=== PATIENT | female | born 1955 | race Caucasian/White ===

== ENCOUNTER 2016-11-19 16:42 | Emergency (ER) | payer BC ==
[2016-11-19 17:08] LABS: BASOPHIL# 0.4 X 10^3uL (0.0-0.1); BASOPHILS 2.2 % (0.0-2.0); EOSINOPHILS 0.1 % (0.0-6.0); HEMATOCRIT 51.1 % (36.0-48.0); HEMOGLOBIN 17.3 g/dL (12.0-16.0); LYMPHOCYTES 12.4 % (20.0-40.0); LYMPHOCYTES# 2.1 X 10^3uL (0.8-3.8); MEAN CELL VOLUME 87.2 fL (80.0-100.0); MEAN CORPUS. HGB CONCENTRATION 33.8 g/dL (32.0-36.0); MEAN CORPUSCULAR HEMOGLOBIN 29.5 pg (29.0-35.0); MEAN PLATELET VOLUME 10.5 fL (7.4-10.4); MONOCYTES 5.1 % (2.0-10.0); MONOCYTES# 0.9 X 10^3uL (0.2-1.0); NEUTROPHILS 80.2 % (54.0-75.0); NEUTROPHILS# 13.7 X 10^3uL (2.6-6.7); RED BLOOD COUNT 5.86 X 10^6uL (4.20-6.10); RED CELL DISTRIBUTION WIDTH 13.6 % (11.5-14.5); WHITE BLOOD COUNT 17.1 X 10^3uL (3.9-10.7)
[2016-11-19] MEDS ORDERED: ONDANSETRON HCL 4 MG/2 ML VIAL ONE ×2 (17:11→21:55)
[2016-11-19 17:19] LABS: ALBUMIN 5.1 g/dL (3.5-5.0); BILIRUBIN, DIRECT 0.3 mg/dL (0.0-0.4); BILIRUBIN, TOTAL 0.9 mg/dL (0.2-1.3); CALCIUM 11.1 mg/dL (8.4-10.2); POTASSIUM 4.7 mmol/L (3.5-5.1); TOTAL PROTEIN 9.5 g/dL (6.3-8.2)
[2016-11-19 17:55] LABS: ARTERIAL BLD GAS O2 SATURATION 94 % (95-98); ARTERIAL BLOOD GAS BASE EXCESS -22 (-2-+3); ARTERIAL BLOOD GAS HCO3 6.7 mmol/L (22-26); ARTERIAL BLOOD GAS PO2 88 mmHg (80-105)
[2016-11-19 18:10] LABS: BETA HYDROXYBUTYRATE > 2.00 mmol/L (<0.40)
[2016-11-19] MEDS ORDERED: INSULIN REGULAR HUMAN 100 UNITS/ML ML ONE (18:12)
[2016-11-19 18:13] LABS: ARTERIAL BLOOD GAS PCO2 18.6 mmHg (35-45); ARTERIAL BLOOD GAS TOTAL CO2 7 mmHg (23-27)
[2016-11-19 20:26] LABS: URINE MUCUS NONE SEEN (Up to 25%)
[2016-11-19 20:33] LABS: URINE APPEARANCE CLEAR; URINE COLOR YELLOW; URINE LEUKOCYTE ESTERASE NEGATIVE (NEGATIVE); URINE NITRITE NEGATIVE (NEGATIVE); URINE SPECIFIC GRAVITY 1.025 (0.001-1.035)
[2016-11-19 20:34] LABS: URINE BILIRUBIN 0.5 mg/100ml (1+) (NEGATIVE); URINE BLOOD NEGATIVE (NEGATIVE); URINE GLUCOSE 500mg/dL (2+) (NEGATIVE); URINE KETONE 100mg/dL (3+) (NEGATIVE); URINE PROTEIN 30mg/dL (1+) (NEG - TRACE); URINE RBC 0-5/hpf (0-5/hpf); URINE SQUAMOUS EPITHELIAL CELL 0-5/hpf (<= 15/hpf); URINE UROBILINOGEN 0.2mg/dL (Normal) (NEG-1mg/dL)
[2016-11-19 22:19] LABS: BLOOD UREA NITROGEN 21 mg/dL (7-17); CALCIUM 9.3 mg/dL (8.4-10.2); CHLORIDE 113 mmol/L (98-107); EST GLOMERULAR FILTRATION RATE > 60 mL/min; GLUCOSE 166 mg/dL (70-100); POTASSIUM 4.5 mmol/L (3.5-5.1); SODIUM 147 mmol/L (137-145)
[2016-11-19 22:25] LABS: BETA HYDROXYBUTYRATE > 2.00 mmol/L (<0.40)
[2016-11-19 22:29] LABS: ARTERIAL BLOOD GAS HCO3 7.1 mmol/L (22-26); ARTERIAL BLOOD GAS PCO2 21.9 mmHg (35-45)
[2016-11-19 22:31] LABS: TROPONIN I < 0.012 ng/mL (0.00-0.034)
[2016-11-19] MEDS ORDERED: MAG-AL PLUS XS SUSP 30 ML UDC ONE (22:39)
[2016-11-19] MEDS ORDERED: LEVOFLOXACIN/D5W 150 ML IV ONE (22:40)
[2016-11-19] MEDS ORDERED: LIDOCAINE VISCOUS 2% 15 ML UDC ONE (22:40)
--- NOTE | 2016-11-20 00:16 | ER PHYSICIAN DOCUMENTATION ---
Physician Documentation [facility] Name:Milli Reyez Age:61 yrs Sex:Female :1955 Arrival Date:11/19/2016 Time:16:42 Bed4 Private MD:No PCP, Identified ED Allanbo Dilan Disposition: 11/19/16 23:03 Transfer ordered to [facility]. Diagnosis is Diabetic Ketoacidosis (uncontrolled).. - Reason for transfer: Higher level of care. - Accepting physician is Dr. Eric Dooley. - Condition is Serious. - Problem is new. - Symptoms are unchanged. COBRA Form completed? Yes Transfer - Mode of Transportation Ambulance HPI: 11/19 17:45 This 61 yrs old Female presents to ER via Walk In with complaints of Vomiting.jm 17:45 The patient presents to the emergency department with nausea, with vomiting, without jm any complaints of abdominal pain. Onset: The symptom(s)/episode began/occurred 3 day(s) ago. Possible causes: unknown. The symptoms are aggravated by food . Associated signs and symptoms: Pertinent positives: nausea, vomiting. Severity of symptoms: in the emergency department the symptoms are unchanged. The patient has not experienced similar symptoms in the past. The patient has not recently seen a physician. Pt has not had anything to eat for the past 3 days. She continues to vomit every time she tries. She denies pain, but has some lower abd cramps that come and go. . Historical: - Allergies: Macrobid; - Home Meds: 1. Lisinopril Oral 2. Simvastatin Oral 3. Insulin: Regular Sub-Q 4. unknown oral diabetes medication 5. c pap machine at night - PMHx: Hypertension; Diabetes - IDDM; hyperlipidemia; heart murmur; SLEEP APNEA; - PSHx: None; - Tetanus: < 10 years. - Ebola Screening: : Patient negative for fever greater than or equal to 101.5 degrees Fahrenheit, and additional compatible Ebola Virus Disease symptoms. Patient denies exposure to infectious person. Patient denies travel to an Ebola-affected area in the 21 days before illness onset. No symptoms or risks identified at this time. . - Immunization history: Flu Vaccine None. - Social history: Smoking status: Patient states was never smoker of tobacco. Patient uses alcohol occasionally. ROS: 17:47 Constitutional: Negative for body aches, fever. 17:47 Constitutional: Positive for fatigue, malaise, poor PO intake. 17:47 Abdomen/GI: Positive for nausea, vomiting, abdominal cramps, Negative for diarrhea. 17:47 Skin: Negative for rash. 17:47 Neuro: Positive for weakness, Negative for dizziness, headache. 17:47 All other systems are negative. Exam: 17:48 Constitutional: The patient appears alert, awake, comfortable. 17:48 Eyes: Periorbital structures: appear normal, Conjunctiva: normal. 17:48 ENT: Mouth: is normal, Voice: is normal. 17:48 Neck: Thyroid: appears normal, Trachea: is midline with no obvious abnormalities. 17:48 Cardiovascular: Rate: tachycardic, Rhythm: regular. 17:48 Respiratory: Respirations: normal, Breath sounds: are normal. 17:48 Abdomen/GI: Bowel sounds: normal, Palpation: abdomen is soft and non-tender. 17:48 Back: pain, is absent, CVA tenderness, is absent. 17:48 Musculoskeletal/extremity: Pulses: are normal with no appreciated deficits, Sensation intact. 17:48 Skin: Appearance: Color: pink, no rash present. 17:48 Neuro: Mentation: is normal, Memory: is normal. 17:48 Psych: Behavior/mood is pleasant, cooperative, Affect is calm. Vital Signs: 17:03 BP 154 / 81; Pulse 102; Resp 20; Temp 97.9; Pulse Ox 93% on R/A; Weight 88 kg (R); mk2 Height 5 ft. 6 in. (167.64 cm); Pain 2/10; 17:14 Pulse 106 MON; Resp 20; Pulse Ox 94% ; mk2 17:19 Pulse 98 MON; Resp 24; Pulse Ox 96% ; mk2 17:21 BP 136 / 77 (auto/); mk2 17:24 Pain 0/10; mk2 17:24 Pulse 101 MON; Resp 18; Pulse Ox 96% ; mk2 18:23 BP 152 / 76 (auto/); mk2 18:24 Pulse 97 MON; Resp 16; Pulse Ox 99% ; mk2 19:24 Pulse 103 MON; Resp 23; Pulse Ox 100% ; mk2 19:24 BP 160 / 78; Pulse 106; Resp 24; Pulse Ox 100% on R/A; Pain 0/10; mk2 20:39 BP 174 / 73; Pulse 103; Resp 22; Pulse Ox 97% on R/A; Pain 0/10; mk2 21:26 BP 114 / 76 (auto/); mk2 21:29 Pulse 101 MON; Resp 19; Pulse Ox 97% ; mk2 21:31 BP 114 / 76; Pulse 102; Resp 18; Pulse Ox 96% on R/A; Pain 5/10; mk2 22:44 BP 159 / 68 (auto/); mk2 22:44 Pulse 100 MON; Resp 23; Pulse Ox 97% ; mk2 22:57 Pain 0/10; mk2 17:03 Body Mass Index 31.31 (88.00 kg, 167.64 cm) 2 MDM: 16:52 Patient medically screened. 18:47 Differential diagnosis: viral gastroenteritis, starvation ketosis, DKA. Data reviewed: vital signs, nurses notes, lab test result(s), EKG, and as a result, I will continue to observe the patient. Counseling: I had a detailed discussion with the patient and/or guardian regarding: the historical points, exam findings, and any diagnostic results supporting the discharge/admit diagnosis, lab results. ECG:. Medication response: The patient's symptoms have improved, zofran and IVF. Transition of care: After a detail discussion of the patient's case, care is transferred to Dilan Washburn MD. 22:11 ED course: brief chest pressure prior to nausea and vomitting, repeat EKG normal. 5 or sc 6 hour episode Friday consider GERD/gastroparesis vs cardiac.. 23:01 Response to treatment: There is no appreciated change of the patient's symptoms at this sc time, still acidotic. Physician consultation: Guille ChirinosDooley was called at 23:02, was contacted at 23:02, regarding patient's condition. 23:03 EKG attached [facility] 11/19 17:17 Order name: CBC AUTO DIF, MDIF/RMOR IF IND; Complete Time: 17:30 EDMS 11/19 17:28 Order name: BASIC METABOLIC PANEL; Complete Time: 17:30 EDMS 11/19 17:28 Order name: HEPATIC PANEL; Complete Time: 17:30 EDMS 11/19 17:28 Order name: LIPASE; Complete Time: 17:30 EDMS 11/19 18:14 Order name: BETA HYDROXYBUTYRATE; Complete Time: 18:15 EDMS 06 18:14 Order name: ARTERIAL BLOOD GAS; Complete Time: 18:15 EDMS 11/19 20:35 Order name: UA W/ MICRO -CULTURE IF IND; Complete Time: 21:34 EDMS / 21:34 Interpretation: Abnormal. ca 11/19 22:19 Order name: LACTATE; Complete Time: 22:25 EDMS 11/19 22:25 Order name: BASIC METABOLIC PANEL; Complete Time: 22:59 EDMS 11/19 22:25 Interpretation: Abnormal. ca 11/19 22:26 Order name: BETA HYDROXYBUTYRATE; Complete Time: 22:59 EDMS 11/19 22:27 Interpretation: Abnormal: BETA HYDROXYBUTYRATE > 2.00. ca 11/19 22:32 Order name: ARTERIAL BLOOD GAS; Complete Time: 22:59 EDMS 11/19 22:32 Order name: TROPONIN I; Complete Time: 22:59 EDMS 07 07:41 Order name: URINE CULTURE EDCT 11/20 22:09 Order name: BLOOD CULTURE [facility] 11/20 22:09 Order name: BLOOD CULTURE [facility] 11/19 16:58 Order name: 12-lead EKG; Complete Time: 17:01 11/19 16:59 Order name: NPO; Complete Time: 17:05 11/19 16:59 Order name: Iv Saline Lock; Complete Time: 17:05 11/19 21:29 Order name: EKG - 12 Lead; Complete Time: 21:29 mk2 11/19 22:57 Order name: Oxygen; Complete Time: 22:57 mk2 EC:47 Rhythm is regular. QRS Davilla is Normal. TN interval is normal. QRS interval is normal. QT interval is normal. No Q waves. T waves are Normal. No ST changes noted. Dispensed Medications: 17:02 Drug: Zofran 4 mg; Route: IVP; Infused Over: 2 mins; Site: left antecubital; lp 18:03 Follow up: Response: Nausea is decreased mk2 18:03 Follow up: Response: Nausea is decreased lp 17:02 Drug: NS 0.9% 1000 ml; Route: IV; Rate: bolus; Site: left antecubital; lp 18:02 Follow up: Response: No adverse reaction; No change in condition; IV Status: Completed lp infusion; IV Intake: 1000ml 17:05 Drug: NS 0.9% 1000 ml; Route: IV; Rate: bolus; Site: left antecubital; mk2 18:52 Follow up: IV Status: Completed infusion; IV Intake: 1000ml mk2 18:04 Drug: Insulin Regular Human 5 units; Route: IVP; Infused Over: 3 mins; Site: left lp antecubital; 18:52 Follow up: Response: No adverse reaction mk2 18:05 CANCELLED (Duplicate Order): NS 0.9% 1000 ml IV at bolus once mk2 18:05 CANCELLED (Physician Discretion): Insulin Regular Human 5 units IVP once lp 18:57 Drug: NS 0.9% 1000 ml; Route: IV; Rate: bolus; Site: left antecubital; mk2 21:28 Follow up: IV Status: Completed infusion; IV Intake: 1000ml mk2 22:23 Drug: Zofran 4 mg; Route: IVP; Infused Over: 2 mins; Site: left antecubital; mk2 22:25 Follow up: Response: Nausea is decreased 2 22:41 Drug: GI Cocktail w/o Donnatol - (Maalox Suspension 30 ml, Lidocaine Liquid 2 % 15 ml); mk2 Route: PO; 22:57 Follow up: Pain 0/10 Adult mk2 22:41 Drug: Levaquin 750 mg; Route: IVPB; Site: left antecubital; mk2 23:40 Follow up: IV Status: Infusing continued upon transfer mk2 23:30 Drug: NS 0.9% 1000 ml; Route: IV; Rate: 125 ml/hr; Site: right antecubital; mk2 23:53 Follow up: IV Status: Infusing continued upon transfer 2 Point of Care Testing: Blood Glucose: 17:03 Blood Glucose: 245 mg/dL; mk2 18:37 Blood Glucose: 195 mg/dL; mk2 19:28 Blood Glucose: 162 mg/dL; mk2 20:38 Blood Glucose: 148 mg/dL; mk2 21:24 Blood Glucose: 153 mg/dL; em1 23:20 Blood Glucose: 170 mg/dL; em1 Ranges: Critical Glucose Levels:Adult <50 mg/dl or >400 mg/dl <40 mg/dl or >180 mg/dl Signatures: Pavlish, Nakia, RN RN Dilan Ruelas MD MD sc Meyer, John, MD MD jm Kruger, Denae, RN RN mk2
--- NOTE | 2016-11-20 00:16 | ER NURSING DOCUMENTATION ---
Nurse's Notes [facility] Name:Milli Reyze Age:61 yrs Sex:Female :1955 Arrival Date:11/19/2016 Time:16:42 Bed4 Private MD:No PCP, Identified Diagnosis:Diabetic Ketoacidosis (uncontrolled). Presentation: 11/19 16:57 Presenting complaint: Patient states: I came in from [place] this week and I've been mk2 vomiting since Friday. I vomited last about an hour ago. Pt states she has had one bowel movement since Friday due to not keeping things down. Pt admits to only mild mid suprapubic pain. Pt states she may have felt feverish at home but there is no fever today. Pt also states she had chest pain Friday but not since and that she hasn't been taking her insulin trying to stretch it out due to no further prescriptions available currently. Transition of care: Home. 16:57 Method Of Arrival: Walk In [facility] 16:57 Acuity: JANE 3 [facility] 23:10 Acuity: JANE 2 2 Triage Assessment: 17:01 General: Appears uncomfortable, Behavior is cooperative, pleasant. Pain: Complains of mk2 pain in suprapubic area Pain currently is 2 out of 10 on a pain scale. Neuro: No deficits noted. Cardiovascular: Rhythm is regular. Respiratory:. GI: Reports nausea, vomiting, Denies constipation, diarrhea. 17:04 Cardiovascular: Murmur present. Respiratory: Breath sounds are clear bilaterally. [facility] Historical: - Allergies: Macrobid; - Home Meds: 1. Lisinopril Oral 2. Simvastatin Oral 3. Insulin: Regular Sub-Q 4. unknown oral diabetes medication 5. c pap machine at night - PMHx: Hypertension; Diabetes - IDDM; hyperlipidemia; heart murmur; SLEEP APNEA; - PSHx: None; - Tetanus: < 10 years. - Ebola Screening: : Patient negative for fever greater than or equal to 101.5 degrees Fahrenheit, and additional compatible Ebola Virus Disease symptoms. Patient denies exposure to infectious person. Patient denies travel to an Ebola-affected area in the 21 days before illness onset. No symptoms or risks identified at this time. . - Immunization history: Flu Vaccine None. - Social history: Smoking status: Patient states was never smoker of tobacco. Patient uses alcohol occasionally. Screenin:04 Infectious Disease Risk None. Abuse screen: Denies threats or abuse. Nutritional mk2 screening: No deficits noted. Assessment: 17:04 See Triage Assessment done by same RN. mk2 21:32 Reassessment: Pt called RN to room stating she is having chest pressure 5/10 and sob. mk2 Pt is not in respiratory distress and is talking calmly to RN. EKG is done and MD is aware. . Vital Signs: 17:03 BP 154 / 81; Pulse 102; Resp 20; Temp 97.9; Pulse Ox 93% on R/A; Weight 88 kg (R); mk2 Height 5 ft. 6 in. (167.64 cm); Pain 2/10; 17:14 Pulse 106 MON; Resp 20; Pulse Ox 94% ; mk2 17:19 Pulse 98 MON; Resp 24; Pulse Ox 96% ; mk2 17:21 BP 136 / 77 (auto/); mk2 17:24 Pain 0/10; mk2 17:24 Pulse 101 MON; Resp 18; Pulse Ox 96% ; mk2 18:23 BP 152 / 76 (auto/); mk2 18:24 Pulse 97 MON; Resp 16; Pulse Ox 99% ; mk2 19:24 Pulse 103 MON; Resp 23; Pulse Ox 100% ; mk2 19:24 BP 160 / 78; Pulse 106; Resp 24; Pulse Ox 100% on R/A; Pain 0/10; mk2 20:39 BP 174 / 73; Pulse 103; Resp 22; Pulse Ox 97% on R/A; Pain 0/10; mk2 21:26 BP 114 / 76 (auto/); mk2 21:29 Pulse 101 MON; Resp 19; Pulse Ox 97% ; mk2 21:31 BP 114 / 76; Pulse 102; Resp 18; Pulse Ox 96% on R/A; Pain 5/10; mk2 22:44 BP 159 / 68 (auto/); mk2 22:44 Pulse 100 MON; Resp 23; Pulse Ox 97% ; mk2 22:57 Pain 0/10; mk2 17:03 Body Mass Index 31.31 (88.00 kg, 167.64 cm) mk2 ED Course: 16:44 Patient arrived in ED. ds 16:45 No PCP, Identified is Private Physician. ds 16:49 EKG done per protocol. Performed by ED Staff. mk2 16:49 campus monitor on. Pulse ox on. NIBP on. PO fluids given. Verbal reassurance given. mk2 Warm blanket given. 16:57 Denae Song, RN is Primary Nurse. mk2 16:58 Teja Chaney MD is Attending Physician. 16:59 Triage completed. mk2 17:03 Arm band placed on Bed in low position Call Light in Reach Gowned HOB Elevated Side mk2 rails up x1. 17:05 Inserted peripheral IV: 20 gauge in left antecubital area and blood collected. mk2 18:51 Resting quietly. given grahm crackers and water. mk2 19:13 Attending Physician role handed off by Teja Chaney MD nc 19:13 Dilan Washburn MD is Attending Physician. nc 20:10 Urine collected. Clean catch specimen. mk2 20:41 Resting quietly. chatting on the phone. mk2 21:21 EKG done. Repeat EKG. mk2 21:30 Valuables Remains with patient. mk2 21:54 Missed attempts: 20 gauge X 1 in right antecubital area. em1 22:19 Labs drawn. (by ED staff). First set of blood cultures drawn Second set of blood mk2 cultures drawn by mo ABG drawn. (by ED staff). on room air. 22:22 Inserted peripheral IV: 20 gauge in right antecubital area and blood collected. mk2 22:[address] Washburn notified. Notified CO2 9 reported by Debra. Repeated back and mk2 Dr. Washburn aware. 22:58 Oxygen Oxygen administration via nasal cannula @ 2L/min. mk2 23:03 EKG attached mk2 23:04 Pt is alert and oriented and reports no pain. Non labored breathing. Pt is without mk2 tachypnea. Pt understands diagnosis and why she will be transported. Kimi ([facility]) brings pt lab top from car at request of pt. 23:39 Pt now offers new information that her lower back has been hurting mildly. mk2 Administered Medications: 17:02 Drug: Zofran 4 mg; Route: IVP; Infused Over: 2 mins; Site: left antecubital; lp 18:03 Follow up: Response: Nausea is decreased mk2 18:03 Follow up: Response: Nausea is decreased lp 17:02 Drug: NS 0.9% 1000 ml; Route: IV; Rate: bolus; Site: left antecubital; lp 18:02 Follow up: Response: No adverse reaction; No change in condition; IV Status: Completed lp infusion; IV Intake: 1000ml 17:05 Drug: NS 0.9% 1000 ml; Route: IV; Rate: bolus; Site: left antecubital; mk2 18:52 Follow up: IV Status: Completed infusion; IV Intake: 1000ml mk2 18:04 Drug: Insulin Regular Human 5 units; Route: IVP; Infused Over: 3 mins; Site: left lp antecubital; 18:52 Follow up: Response: No adverse reaction mk2 18:05 CANCELLED (Duplicate Order): NS 0.9% 1000 ml IV at bolus once mk2 18:05 CANCELLED (Physician Discretion): Insulin Regular Human 5 units IVP once lp 18:57 Drug: NS 0.9% 1000 ml; Route: IV; Rate: bolus; Site: left antecubital; mk2 21:28 Follow up: IV Status: Completed infusion; IV Intake: 1000ml mk2 22:23 Drug: Zofran 4 mg; Route: IVP; Infused Over: 2 mins; Site: left antecubital; mk2 22:25 Follow up: Response: Nausea is decreased mk2 22:41 Drug: GI Cocktail w/o Donnatol - (Maalox Suspension 30 ml, Lidocaine Liquid 2 % 15 ml); mk2 Route: PO; 22:57 Follow up: Pain 0/10 Adult mk2 22:41 Drug: Levaquin 750 mg; Route: IVPB; Site: left antecubital; mk2 23:40 Follow up: IV Status: Infusing continued upon transfer mk2 23:30 Drug: NS 0.9% 1000 ml; Route: IV; Rate: 125 ml/hr; Site: right antecubital; mk2 23:53 Follow up: IV Status: Infusing continued upon transfer mk2 Point of Care Testing: Blood Glucose: 17:03 Blood Glucose: 245 mg/dL; mk2 18:37 Blood Glucose: 195 mg/dL; mk2 19:28 Blood Glucose: 162 mg/dL; mk2 20:38 Blood Glucose: 148 mg/dL; mk2 21:24 Blood Glucose: 153 mg/dL; em1 23:20 Blood Glucose: 170 mg/dL; em1 Ranges: Intake: 18:02 IV: 1000ml; Total: 1000ml. lp 18:52 IV: 1000ml; Total: 2000ml. mk2 21:28 IV: 1000ml; Total: 3000ml. mk2 23:30 PO: 300ml (Water); Total: 3300ml. mk2 Output: 23:30 Urine: 625ml (Voided); Total: 625ml. mk2 Outcome: 22:20 Discharge ordered by MD. nguyen 23:03 ER care complete, transfer ordered by MD. nguyen 11/20 00:15 Transferred: Patient will be transferred to: [facility] [place]. Facility mk2 Acceptance Time: November 19, 2016 at 23:00 Patient's face sheet was faxed to accepting facility. Face Sheet included patient's name, address, age, gender, contact information and insurance information. Patient will be transported by: [facility] ground. Report called to: [facility] Nurse and Physician Charting and Notes were sent to Accepting Facility. All tests and/or procedures with results, if applicable, were sent to accepting facility. Condition: stable Discharge Assessment: Patient awake, alert and oriented x 3. No cognitive and/or functional deficits noted. Patient verbalized understanding of disposition instructions. Discharge instructions given to family, Instructed on need for transfer 00:16 Patient left the ED. mk2 Signatures: Nakia Mendez, GEMA RN damian Srot, Maricruz, Reg Reg ds Dilan Washburn MD MD sc Meyer, John, MD MD jm Kruger, Meg, GEMA RN mk2 [facility]
== END 2016-11-20 00:16 | disposition short-term general hospital (02) ==
LOC: ER 16:42
DX: E11.65 Type 2 diabetes mellitus with hyperglycemia (principal); E87.2 Acidosis; R11.2 Nausea with vomiting, unspecified; R10.9 Unspecified abdominal pain; R53.83 Other fatigue; R53.81 Other malaise; R53.1 Weakness; R82.99 Other abnormal findings in urine; R00.0 Tachycardia, unspecified; Z79.899 Other long term (current) drug therapy; Z79.4 Long term (current) use of insulin; Z99.89 Dependence on other enabling machines and devices; Z74.3 Need for continuous supervision
CPT/HCPCS: 80048; 80076; 81001; 82010; 82803; 83605; 83690; 84484; 85025; 87040; 87086; 93005; 96361; 96365; 96375; 96376; 99285; A0425; A0427; J1815; J1956; J2405